=== PATIENT | female | born 1965 | race Caucasian/White ===

== ENCOUNTER 2019-05-08 13:49 | Emergency (ER) | payer BC ==
[~2019-05-08] VITALS: Ht 175.3 cm; Wt 70.3 kg
[2019-05-08] MEDS ORDERED: NORCO 5-325 TA1 EAC1 PO (14:42)
[2019-05-08] MEDS ORDERED: KEFLEX500 M1 PO (14:42)
[2019-05-08] MEDS ORDERED: IBUPROFEN 800800 M1 PO (14:42)
[2019-05-08 15:02] VITALS: BP 158/79
== END 2019-05-08 15:02 | disposition home or self-care (01) ==
LOC: M.ERS 13:49
DX: S62.636B Displaced fracture of distal phalanx of right little finger, initial encounter for open fracture (principal); W23.0XXA Caught, crushed, jammed, or pinched between moving objects, initial encounter; Y93.89 Activity, other specified; Y92.89 Other specified places as the place of occurrence of the external cause; Y99.8 Other external cause status